=== PATIENT | female | born 1995 | race Caucasian/White ===

== ENCOUNTER 2017-09-12 10:09 | Emergency (ER) | payer BC ==
--- NOTE | 2017-09-12 12:08 | ER Document Report ---
ED General - General Chief Complaint: Dizziness Stated Complaint: DIZZINESS Time Seen by Provider: 09/12/17 11:05 Mode of Arrival: Ambulatory Information source: Patient Notes: 21-year-old female presents with complaints of dizziness as of this morning. Patient denies any fevers or chills notes she got lightheaded when she stood up. Patient also notes pain in her buttocks a few day duration hurts when she sits TRAVEL OUTSIDE OF THE [place] IN LAST 30 DAYS: No - HPI Onset: Other Onset/Duration: Sudden Quality of pain: Achy Severity: Mild Pain Level: 1 Associated symptoms: Other Exacerbated by: Sitting, Standing Relieved by: Denies Similar symptoms previously: No Recently seen / treated by doctor: No - Related Data Allergies/Adverse Reactions: No Known Allergies Allergy (Unverified 09/12/17 11:45) Past Medical History - Social History Smoking Status: Never Smoker Cigarette use (# per day): No Chew tobacco use (# tins/day): No Smoking Education Provided: No Frequency of alcohol use: None Drug Abuse: None Family History: Reviewed & Not Pertinent Patient has suicidal ideation: No Patient has homicidal ideation: No Renal/ Medical History: Denies: Hx Peritoneal Dialysis Review of Systems - Review of Systems Notes: REVIEW OF SYSTEMS: CONSTITUTIONAL : Denies fever, chills, or sweats. Denies recent illness. EENT: Denies eye, ear, throat, or mouth pain or symptoms. Denies nasal or sinus congestion or discharge. Denies throat, tongue, or mouth swelling or difficulty swallowing. CARDIOVASCULAR: Denies chest pain. Denies palpitations or racing or irregular heart beat. Denies ankle edema. RESPIRATORY: Denies cough, cold, or chest congestion. Denies shortness of breath, difficulty breathing, or wheezing. GASTROINTESTINAL: Denies abdominal pain or distention. Denies nausea, vomiting , or diarrhea. Denies blood in vomitus, stools, or per rectum. Denies black, tarry stools. Denies constipation. GENITOURINARY: Denies difficulty urinating, painful urination, burning, frequency, blood in urine, or discharge. FEMALE GENITOURINARY: Denies vaginal bleeding, heavy or abnormal periods, irregular periods. Denies vaginal discharge or odor. MUSCULOSKELETAL: Denies back or neck pain or stiffness. Denies joint pain or swelling. SKIN: Pain buttocks HEMATOLOGIC : Denies easy bruising or bleeding. LYMPHATIC: Denies swollen, enlarged glands. NEUROLOGICAL: Admits to dizziness PSYCHIATRIC: Denies anxiety or stress. Denies depression, suicidal ideation, or homicidal ideation. ALL OTHER SYSTEMS REVIEWED AND NEGATIVE. PHYSICAL EXAMINATION: GENERAL: Well-appearing, well-nourished and in no acute distress. HEAD: Atraumatic, normocephalic. EYES: Pupils equal round and reactive to light, extraocular movements intact, conjunctiva are normal. ENT: Nares patent, oropharynx clear without exudates. Moist mucous membranes. NECK: Normal range of motion, supple without lymphadenopathy LUNGS: Breath sounds clear to auscultation bilaterally and equal. No wheezes rales or rhonchi. HEART: Regular rate and rhythm without murmurs ABDOMEN: Soft, nontender, nondistended abdomen. No guarding, no rebound. No masses appreciated. Female : deferred Musculoskeletal: Normal range of motion, no pitting or edema. No cyanosis. NEUROLOGICAL: Cranial nerves grossly intact. Normal speech, normal gait. Normal sensory, motor exams PSYCH: Normal mood, normal affect. SKIN: 1 x 1 cm abscess of the buttocks on the left Dictation was performed using [employer] voice recognition software Physical Exam - Vital signs Vitals: Pulse Resp BP Pulse Ox 99 H 20 115/59 L 98 09/12/17 11:05 09/12/17 11:05 09/12/17 11:05 09/12/17 11:05 Course - Re-evaluation Re-evalutation: 09/12/17 12:08 Patient was examined with nurse in the room, abscesses noted, offered incision and drainage she defers 09/12/17 13:03 Patient's urinalysis is consistent with moderate leuk esterases, patient will be placed on Bactrim for urinary tract infection and will cover it for the abscess as well patient has been instructed regarding this that it would be best to incise and drain but she again defers After performing a Medical Screening Examination, I estimate there is LOW risk for INTRACRANIAL HEMORRHAGE, ISCHEMIC CVA, MALIGNANT DYSRHYTHMIA, ACUTE CORONARY SYNDROME, MENINGITIS, PULMONARY EMBOLISM, or SEPSIS thus I consider the discharge disposition reasonable. I have reevaluated this patient multiple times and no significant life threatening changes are noted. The patient and I have discussed the diagnosis and risks, and we agree with discharging home with close follow-up with the understanding that symptoms and presentations can change. We also discussed returning to the Emergency Department immediately if new or worsening symptoms occur. We have discussed the symptoms which are most concerning (e.g., changing or worsening pain, weakness, vomiting, fever) that necessitate immediate return. - Vital Signs Vital signs: Temp Pulse Resp BP Pulse Ox 99 H 20 115/59 L 98 09/12/17 11:05 09/12/17 11:05 09/12/17 11:05 09/12/17 11:05 - Laboratory Laboratory results interpreted by me: 09/12/17 12:10 Urine Protein 30 H Ur Leukocyte Esterase MODERATE H Urine Ascorbic Acid 40 H Discharge - Discharge Clinical Impression: Abscess, Dizziness UTI (urinary tract infection) Qualifiers: Urinary tract infection type: acute cystitis Hematuria presence: without hematuria Qualified Code(s): N30.00 - Acute cystitis without hematuria Condition: Stable Disposition: HOME, SELF-CARE Instructions: Urinary Tract Infection ([facility]), Dizziness ([facility]), Abscess ([facility]) Additional Instructions: Follow up with your physician tomorrow for further care or return to the ED IMMEDIATELY if symptoms worsen or new concerns occur. If you cannot afford to follow up with your primary care physician a list of low cost clinics have been provided at the end of your discharge papers as well. Prescriptions: Sulfamethoxazole/Trimethoprim [Bactrim Ds Tablet] 1 each PO BID #20 tablet
[2017-09-12 12:59] LABS: AMORPHOUS SEDIMENT,URINE 1+ /HPF; APPEARANCE,URINE TURBID; BILIRUBIN,URINE NEGATIVE (NEGATIVE); COLOR,URINE YELLOW; GLUCOSE, URINE NEGATIVE (NEGATIVE); KETONES,URINE NEGATIVE (NEGATIVE); LEUKOCYTE ESTERASE,URINE MODERATE (NEGATIVE); NITRITE,URINE NEGATIVE (NEGATIVE); PROTEIN,URINE 30 mg/dL (NEGATIVE); URINE SPECIFIC GRAVITY 1.029; UROBILINOGEN,URINE NEGATIVE mg/dL (<2.0)
[2017-09-12 13:13] VITALS: BP 108/55
== END 2017-09-12 13:13 | disposition home or self-care (01) ==
LOC: ER 10:09
DX: R42 Dizziness and giddiness (principal); N30.00 Acute cystitis without hematuria; L02.31 Cutaneous abscess of buttock
CPT/HCPCS: 81001; 81025; 99284

== ENCOUNTER 2018-07-28 19:02 | Emergency (ER) | payer BC, OTHER ==
--- NOTE | 2018-07-28 19:57 | ER Document Report ---
ED Medical Screen (RME) - General Chief Complaint: Vag Bleeding, +preg <12wks Stated Complaint: VAGINAL BLEEDING Time Seen by Provider: 07/28/18 19:55 Notes: 22-year-old female patient to the emergency department chief complaint of vaginal bleeding. Patient is approximately 9-10 weeks . Began having significant amount of bleeding again today. Was seen recently and had ultrasound and was told to come back if the bleeding was severe. Denies any other complaints at this time. I have greeted and performed a rapid initial assessment of this patient. A comprehensive ED assessment and evaluation of the patient, analysis of test r esults and completion of the medical decision making process will be conducted by additional ED providers. TRAVEL OUTSIDE OF THE [place] IN LAST 30 DAYS: No - Related Data Allergies/Adverse Reactions: No Known Allergies Allergy (Unverified 09/12/17 11:45) Past Medical History Renal/ Medical History: Denies: Hx Peritoneal Dialysis Physical Exam - Vital signs Vitals: Temp Pulse Resp BP Pulse Ox 98.3 F 73 20 136/77 H 100 07/28/18 19:12 07/28/18 19:12 07/28/18 19:12 07/28/18 19:12 07/28/18 19:12 Course - Vital Signs Vital signs: Temp Pulse Resp BP Pulse Ox 98.3 F 73 20 136/77 H 100 07/28/18 19:12 07/28/18 19:12 07/28/18 19:12 07/28/18 19:12 07/28/18 19:12
--- NOTE | 2018-07-28 22:08 | RADIOLOGY REPORT (SQ) ---
EXAM DESCRIPTION: US TRANSVAGINAL COMPLETED DATE/TME: 07/28/2018 19:56 CLINICAL HISTORY: 22 years, Female, large bleeding and pain, + Findings: Uterus is anteverted and measures 10.9 x 6.0 cm. The uterus appears bicornuate. There is a IUP noted on the right side corresponding to approximately nine weeks and two days. heart rate is noted at 180 bpm. The gestational sac appears somewhat irregular with adjacent hemorrhage measuring 6 x 4 cm. on the left side of the uterus there is a complex area which may represent hemorrhage measuring 4 x 3 cm. Lower uterine segment also has a complex region which may represent hemorrhage. Cervix is closed measuring 3.5 cm in length. 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 Left-sided demonstrates likely complex hemorrhage.
--- NOTE | 2018-07-28 22:43 | ER Document Report ---
ED General - General Chief Complaint: Vag Bleeding, +preg <12wks Stated Complaint: VAGINAL BLEEDING Time Seen by Provider: 07/28/18 19:55 Notes: Patient is a pleasant 22-year-old female who approximate 9 weeks presents with some cramping pelvic pain and vaginal bleeding. This is second time she said vaginal bleeding is . This is her first . She had previous sound which shows a bicornate uterus. She said that she had heavy bleeding today but it has since come down significant. She has not passed anything that did not look like blood. She still has some mild crampy pain in the suprapubic region. No fevers. No vomiting. Her blood type is O+. No other complaints at this time. [facility] TRAVEL OUTSIDE OF THE [place] IN LAST 30 DAYS: No - Related Data Allergies/Adverse Reactions: No Known Allergies Allergy (Unverified 09/12/17 11:45) Past Medical History - Social History Smoking Status: Never Smoker Frequency of alcohol use: None Drug Abuse: None Family History: Reviewed & Not Pertinent Patient has suicidal ideation: No Patient has homicidal ideation: No Renal/ Medical History: Denies: Hx Peritoneal Dialysis Review of Systems - Review of Systems Notes: My Normal Review Basic REVIEW OF SYSTEMS: CONSTITUTIONAL : Denies fever, chills, or sweats. Denies recent illness. RESPIRATORY: Denies cough, cold, or chest congestion. Denies shortness of breath, difficulty breathing, or wheezing. GASTROINTESTINAL: suprapubic abdominal pain. Denies nausea, vomiting, or diarrhea. Denies constipation. Last BM: GENITOURINARY: Denies difficulty urinating, painful urination, burning, frequency, or blood in urine. FEMALE GENITOURINARY: Vaginal bleeding. LMP: Currently MUSCULOSKELETAL: Denies neck or back pain or joint pain or swelling. SKIN: Denies rash or skin lesions. NEUROLOGICAL: Denies altered mental status or loss of consciousness. Denies headache. Denies weakness or paralysis or loss of use of either side. Denies problems with gait or speech. Denies sensory or motor loss. ALL OTHER SYSTEMS REVIEWED AND NEGATIVE. Physical Exam - Vital signs Vitals: Temp Pulse Resp BP Pulse Ox 98.3 F 73 20 136/77 H 100 07/28/18 19:12 07/28/18 19:12 07/28/18 19:12 07/28/18 19:12 07/28/18 19:12 - Notes Notes: General Appearance: Well nourished, alert, cooperative, no acute distress, no obvious discomfort. Vitals: reviewed, See vital signs table. Eyes: PERRL, EOMI, Conjuctiva clear Lungs: No wheezing, No rales, No rhonci, No accessory muscle use, good air exchange bilaterally. Heart: Normal rate, Regular rythm, No murmur, no rub Abdomen: Normal BS, soft, No rigidity, very mild abdominal tenderness outpatient, No guarding, no rebound, Extremities: No edema in legs. Equal bilateral radial pulses. Skin: warm, dry, appropriate color, no rash Neuro: speech clear, oriented x 3, normal affect, responds appropriately to questions. Course - Re-evaluation Re-evalutation: 07/29/18 07:30 I talked the patient at length about vaginal bleeding . 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 I informed her that currently the child has a good heart rate however there is some bleeding on the ultrasound. Informed her that her could go on normally without miscarriage; however, there is always a chance that she could have a miscarriage. I encouraged her to avoid heavy lifting and avoid any exertional activities. No sexual activity. Informed her to rest over the next several days. Encouraged her follow-up with her personnel quality assurance auditor this week for reevaluation. I encouraged her return to ER if she has worsening pain, increasing bleeding, or she feels unwell. Patient and agree with plan and patient will be discharged home. Dictation of this chart was performed using voice recognition software; therefo re, there may be some unintended grammatical errors. - Vital Signs Vital signs: Temp Pulse Resp BP Pulse Ox 98.7 F 59 L 15 123/67 100 07/28/18 22:57 07/28/18 22:57 07/28/18 22:57 07/28/18 22:57 07/28/18 22:57 - Laboratory Laboratory results interpreted by me: 07/28/18 20:39 Beta HCG, Quant [id number] H Discharge - Discharge Clinical Impression: Vaginal bleeding during Condition: Good Disposition: HOME, SELF-CARE Additional Instructions: Please rest over the next week. No sexual activity until cleared by your OB doctor. Please call your OB doctor's office in the morning and inform them you have been having some vaginal bleeding in so they can give you a close follow up appointment. As discussed with you, vaginal bleeding in is not confirmed more rule out the possible future miscarriage. Please have a low threshold to return to ER if you have having increasing bleeding, severe intractable pain, lightheadedness or dizziness, or if you feel unwell. We are happy to reevaluate you at any time and help in any way we can. Please take Tylenol for pain. Forms: Return to Work
[2018-07-28 22:58] VITALS: BP 123/67
== END 2018-07-28 22:57 | disposition home or self-care (01) ==
LOC: ER 19:02
DX: O20.9 Hemorrhage in early pregnancy, unspecified (principal); O34.01 Maternal care for unspecified congenital malformation of uterus, first trimester; Q51.3 Bicornate uterus; Z3A.09 9 weeks gestation of pregnancy
CPT/HCPCS: 36415; 76817; 84702; 99284